=== PATIENT | female | born 1975 | race Caucasian/White ===

== ENCOUNTER → 2016-07-22 | Outpatient (CLI) | payer MEDICAID | LOC: BHSO 09:41 | DX: F31.81 Bipolar II disorder (principal) ==

== ENCOUNTER → 2016-09-17 | Outpatient (CLI) | payer MEDICAID | LOC: BHSO 14:40 | DX: F43.10 Post-traumatic stress disorder, unspecified (principal) ==

== ENCOUNTER → 2016-10-22 | Outpatient (CLI) | payer MEDICAID | LOC: BHSO 15:43 | DX: F43.10 Post-traumatic stress disorder, unspecified (principal) ==

== ENCOUNTER → 2016-12-23 | Outpatient (CLI) | payer MEDICAID | LOC: BHSO 15:21 | DX: F43.10 Post-traumatic stress disorder, unspecified (principal) ==

== ENCOUNTER → 2017-10-27 | Outpatient (CLI) | payer MEDICAID | LOC: BHSO 10:46 | DX: F43.10 Post-traumatic stress disorder, unspecified (principal) | CPT/HCPCS: G0463 ==

== ENCOUNTER → 2018-04-15 | Outpatient (CLI) | payer MEDICAID | LOC: BHSO 08:54 | DX: F31.81 Bipolar II disorder (principal) | CPT/HCPCS: G0463 ==

== ENCOUNTER → 2018-07-22 | Outpatient (CLI) | payer MEDICAID | LOC: BHSO 09:04 | DX: F43.10 Post-traumatic stress disorder, unspecified (principal) | CPT/HCPCS: G0463 ==

== ENCOUNTER → 2018-09-16 | Outpatient (CLI) | payer MEDICAID | LOC: BHSO 14:04 | DX: F31.81 Bipolar II disorder (principal) | CPT/HCPCS: G0463 ==

== ENCOUNTER → 2018-11-26 | Outpatient (CLI) | payer MEDICAID | LOC: BHSO 14:29 | DX: F43.10 Post-traumatic stress disorder, unspecified (principal) | CPT/HCPCS: G0463 ==

== ENCOUNTER → 2019-01-01 | Outpatient (CLI) | payer MEDICAID | LOC: BHSO 14:49 | DX: F43.10 Post-traumatic stress disorder, unspecified (principal) | CPT/HCPCS: G0463 ==

== ENCOUNTER → 2019-04-09 | Outpatient (CLI) | payer MEDICAID | LOC: BHSO 14:30 | DX: F43.10 Post-traumatic stress disorder, unspecified (principal) | CPT/HCPCS: G0463 ==

== ENCOUNTER → 2019-07-08 | Outpatient (CLI) | payer MEDICAID | LOC: BHSO 14:46 | DX: F43.10 Post-traumatic stress disorder, unspecified (principal) | CPT/HCPCS: G0463 ==